=== PATIENT | male | born 1995 | race Two or more races ===

== ENCOUNTER → 2023-08-08 | Outpatient (REF) | payer OTHER | LOC: M SMT 13:00 | PROVIDERS: ATTEND Urology | DX: Z30.2 Encounter for sterilization (principal) ==

== ENCOUNTER → 2023-10-03 | Outpatient (REF) | payer OTHER ==
[2023-10-03 13:06] LABS: SEMEN APPEARANCE OPAQUE (OPAQUE); SEMEN VISCOSITY LIQUID (LIQUID)
[2023-10-03 13:07] LABS: SEMEN VOLUME 3.8 ml (2.0-5.0); WBC CONCENTRATION >1 M/ml (<=1 M/ml)
== END ==
LOC: M SMT 12:38
PROVIDERS: ATTEND Urology
DX: Z30.8 Encounter for other contraceptive management (principal)